=== PATIENT | male | born 1975 | race Caucasian/White ===

== ENCOUNTER 2020-04-02 21:47 | Emergency (ER) | payer SELFPAY ==
[2020-04-02 21:56] VITALS: BP 151/73; PULSE 73; RESP 20; TEMP 36.9; O2SAT 100
[2020-04-02 22:43] LABS: Basophils Absolute Auto 0.1 K/mm3 (0.0-0.1); Basophils Percent Auto 0.6 % (0.2-1.2); Eosinophils Absolute Auto 0.1 K/mm3 (0-0.3); Eosinophils Percent Auto 0.7 % (0-4.4); Hematocrit 41.2 % (42.0-52.0); Hemoglobin 14.7 g/dL (14.0-18.0); Immature Granulocyte Absolute 0.05 K/mm3 (0.00-0.031); Immature Granulocyte Percent A 0.4 % (0-0.5); Lymphocytes Absolute Auto 0.74 K/mm3 (0.9-3.2); Lymphocytes Percent Auto 5.4 % (18.3-44.2); Mean Corpuscular HGB Conc 35.7 g/dl (32-36); Mean Corpuscular Hemoglobin 32.4 pg (26-34); Mean Corpuscular Volume 90.7 fl (80-100); Mean Platelet Volume 8.4 fl (7.4-10.4); Monocytes Absolute Auto 0.6 K/mm3 (0.1-0.6); Monocytes Percent Auto 4.3 % (2.6-8.5); Neutrophils Absolute Auto 12.2 K/mm3 (1.3-6.7); Neutrophils Percent Auto 88.6 % (45.5-73.1); Platelet Count Result 297 k/mm3 (150-375); Red Blood Count 4.54 M/mm3 (4.6-6.20); Red Cell Distribution Width 11.7 % (11.5-14.5); White Blood Count 13.8 K/mm3 (4.5-10.0)
[2020-04-02 22:51] LABS: Alanine Aminotransferase 14 U/L (4-50); Albumin Level 4.7 g/dL (3.5-5.1); Alkaline Phosphatase 75 U/L (38-126); Anion Gap 9 mmol/L (8-16); Aspartate Amino Transferase 21 U/L (17-59); Bilirubin,Total 0.6 mg/dL (0.2-1.3); Blood Urea Nitrogen 10 mg/dL (9-20); Calcium 9.8 mg/dL (8.4-10.2); Carbon Dioxide 29 mmol/L (22-30); Chloride 100 mmol/L (98-107); Estimated Glomerular Filt Rate > 60; Glucose 130 mg/dL (75-110); Lipase 128 U/L (23-300); Potassium 3.3 mmol/L (3.4-5.0); Sodium 138 mmol/L (137-145)
[2020-04-02 22:54] LABS: Add Urine Microscopic? YES; Amorphous Sediment Urine Few; Appearance Urine Cloudy (Clear); Bacteria Urine Trace /hpf; Bilirubin Urine Negative (Negative); Blood Urine Negative (Negative); Color Urine Yellow (Yellow); Glucose Urine UA Negative (Negative); Ketones Urine Negative (Negative); Leukocyte Esterase Ur Negative LEU/UL (Negative); Mucus Urine Rare /lpf; Nitrate Urine Negative (Negative); Protein Urine Negative (Negative); Specific Grav Ur 1.014 (1.001-1.035); Urobilinogen Urine Negative mg/dL (<2.0); WBC Urine 0-3 /hpf
--- NOTE | 2020-04-02 23:35 | ED.ABDPAIN ---
HPI - Abdominal Pain General Chief Complaint: Abdominal Pain Stated Complaint: abdominal pain Time Seen by Provider: 04/02/20 23:32 Source: RN notes reviewed History of Present Illness HPI narrative: Patient presents emergency department from home for abdominal pain. Patient states the pain began tonight shortly after eating dinner. The pain is located in the epigastric region and is described as burning in nature. The patient states that since that time the pain is greatly improved and is only down to a 1 out of 10 at this time. He denies any fevers or chills, chest pain shortness of breath nausea vomiting diarrhea or any other symptoms. States he does have history of GERD but he states [id number] medicine does not seem to work for him he is not currently on any medication Related Data Allergies Allergy/AdvReac Type Severity Reaction Status Date / Time No Known Allergies Allergy Mild Unverified 09/18/10 12:20 Review of Systems Review of Systems: Narrative: Gen.: Denies fevers or chills ENT: Denies congestion Respiratory: Denies shortness of breath or cough CV: Denies chest pain or palpitations GI: See HPI denies burning, urgency, frequency or hematuria Musculoskeletal: Denies back pain or muscle pain Neuro: Denies numbness, tingling, weakness or focal weakness Skin: Denies rash Except as documented, all other systems reviewed and negative PMF Past Medical History Medical History (Updated 04/03/20 @ 00:26 by Ander Floyd DO) GERD (gastroesophageal reflux disease) Social History Social History (Updated 04/02/20 @ 23:36 by Ander Floyd DO) Smoking status: Never smoker Gender identity (if verbalized by the patient): Male Exam Narrative: Exam Narrative: APPEARANCE: No acute distress, nontoxic, resting in bed EYES: EOMI HEENT: Normocephalic, atraumatic, OMM RESPIRATORY: No respiratory distress Clear to auscultation bilaterally with no rhonchi wheezing or rales. CARDIOVASCULAR: Regular rate and rhythm without murmurs rubs or gallops. ABDOMINAL: Soft, nontender, nondistended, no rebound or guarding MUSCULOSKELETAl: Moves all extremities. No clubbing, cyanosis or edema. NEURO: Awake and alert. Following commands, speech normal, no focal deficits SKIN:: Warm, dry. No rashes lesions or abrasions PSYCHIATRIC: Normal affect/mood, Course Course Emergency Course: Patient states pain is completely resolved following GI cocktail Patient states that they are feeling much better at this time. States abdominal pain has resolved. Repeat abdominal exam shows the patient's abdomen to be soft and nontender. Discussed with patient results of workup and diagnosis. Discussed need for follow-up with primary care physician, reasons to return to the emergency department in proper use of medication. Patient understands and agrees to current treatment plan Vital Signs Vital signs: Vital Signs Temperature 98.5 F 04/02/20 21:56 Pulse Rate 73 04/02/20 21:56 Respiratory Rate 20 04/02/20 21:56 Blood Pressure 151/73 H 04/02/20 21:56 Pulse Oximetry 100 04/02/20 21:56 Temperature 98.5 F 04/02/20 21:56 Pulse Rate 98 04/02/20 23:47 Respiratory Rate 15 04/02/20 23:47 Blood Pressure 150/88 H 04/02/20 23:47 Pulse Oximetry 99 04/02/20 23:47 MDM - Abdominal Pain MDM Narrative Medical decision making narrative: Patient's abdomen is soft without significant pain or signs of surgical abdomen on serial exams. Lab and x-ray evaluations are reviewed and patient is felt to be a reasonable candidate for outpatient management. Patient was instructed as to limitations of x-ray and laboratory evaluation and encouraged to return to ED or primary physician for repeat exam in 12 hours if continued or worsening pain. At this time patient does have a mildly elevated white blood cell count his abdomen exam on initial presentation was completely benign and nontender to palpation his pain was only 1 out of 10 at
[2020-04-02 23:47] VITALS: BP 150/88; PULSE 98; RESP 15; O2SAT 99
[2020-04-03 00:30] VITALS: BP 148/74; PULSE 76; RESP 14; O2SAT 100
== END 2020-04-03 00:30 | disposition home or self-care (01) ==
PROVIDERS: Emergency Provider Emergency Medicine; Referring Provider Emergency Medicine
DX: R10.13 Epigastric pain (principal); K21.9 Gastro-esophageal reflux disease without esophagitis
CPT/HCPCS: 36415; 80053; 81001; 83690; 85025; 99283; A9270

== ENCOUNTER 2021-11-28 13:15 | Emergency (ER) | payer OTHER, SELFPAY ==
--- NOTE | ~2021-11-28 | XR_ITS ---
EXAMINATION: XR chest 2V DATE: 11/28/2021 13:56 INDICATION: Cough and shortness of breath TECHNIQUE: PA and lateral views of the chest are obtained. COMPARISON: None available FINDINGS: The lungs are free of acute opacities. Calcified pulmonary nodules are consistent with old granulomatous disease. No pleural effusion or pneumothorax. The cardiomediastinal silhouette is osman l. The visualized bones and soft tissues are unremarkable. IMPRESSION: 1. No acute cardiopulmonary abnormality. Reviewed, dictated and finalized at location B.
[2021-11-28 13:28] VITALS: BP 161/79; PULSE 114; RESP 18; TEMP 36.9; O2SAT 100
--- NOTE | 2021-11-28 13:54 | ED.URI ---
HPI - URI/Sore Throat General Chief Complaint: Upper Respiratory Infection Stated Complaint: uri Time Seen by Provider: 11/28/21 13:56 History of Present Illness HPI Narrative: Zachary Hill is a 46 yo male with no PMH who had COVID 2 weeks ago and while he recovered from that now feels very weak and shaky, seems somewhat short of breath although his O2 sats are 100%, he is tachycardic Related Data Home Medications Medication Instructions Recorded Confirmed No Home Medications 11/28/21 11/28/21 Allergies Allergy/AdvReac Type Severity Reaction Status Date / Time No Known Allergies Allergy Mild Unverified 09/18/10 12:20 Review of Systems Review of Systems: CONSTITUTIONAL: Denies fever, chills, sweats. Shaky, pale EYES: Denies visual changes, redness, discharge. ENT: Denies rhinorrhea, congestion, sore throat, otalgia. CARDIOVASCULAR: Denies chest pain, palpitations, edema. RESPIRATORY: Denies dyspnea, wheezing, has cough, short of breath GASTROINTESTINAL: Denies abdominal pain, nausea, vomiting, diarrhea. GENITOURINARY: Denies dysuria, hematuria, abnormal discharge SKIN: Denies rash or itching. NEUROLOGIC: Denies numbness, or focal weakness. PSYCHIATRIC: Denies anxiety or depression. [facility] Past Medical History Medical History Anxiety GERD (gastroesophageal reflux disease) Social History Social History Smoking status: Never smoker Occupation/Education: occupation Additional occupation/education comments: He is a cook at [employer] Gender identity (if verbalized by the patient): Male Exam Narrative: GENERAL: This is a well-nourished, well-developed patient, in mild distress. Pale and diaphoretic HEAD: normocephalic, atraumatic. EYES: Sclera clear/white. Vision is grossly intact. EARS: External ears normal,. Hearing grossly intact. NOSE: External nose normal without nasal discharge, nares without redness, no rhinorrhea. THROAT: Mucous membranes moist, NECK: Neck supple, Heart: tachycardic rate and rhythm without murmurs, gallops, or rubs. RESPIRATORY: Clear to auscultation. Breath sounds equal bilaterally. No wheezes, rales, or rhonchi. O2 sats are 100%,c/o shortness of breath GASTROINTESTINAL: Abdomen soft, non-tender, SKIN: warm, intact with no suspicious lesions or rash, moist, good texture and turgor. NEURO: awake, alert, and oriented to person, place and time. There were no obvious focal neurologic abnormalities. Steady gait EXTREMITIES: Normal range of motion. BACK: Nontender without deformity Course Course Emergency Course: Patient had COVID 2 weeks ago and feels he recovered from that and the last day or 2 has gotten really weak mouth is dry states he is urinating a lot, feels short of breath - his C.C. for coming Chest x-ray done-chest x-ray was negative for cardiopulmonary disease Blood glucose is 128 EKG shows irregular rate lead 1,2,rate 85 -patient is diaphoretic enough that nurses had difficulty keeping adhesive tabs for the leads on skin Rational transfer to the ER is the patient had COVID 2 weeks ago and has had increasing shortness of breath and was sent home from a sedentary job today for fatigue and inability to push through her job. He is complaining of shortness of breath at rest. Patient referred to ER because of suspect EKG and needs further blood work to rule out PE Level of Care: Express Care Visit Vital Signs Vital signs: Vital Signs Temperature 98.4 F 11/28/21 13:28 Pulse Rate 114 H 11/28/21 13:28 Respiratory Rate 18 11/28/21 13:28 Blood Pressure 161/79 H 11/28/21 13:28 Pulse Oximetry 100 11/28/21 13:28 Oxygen Delivery Room Air 11/28/21 13:28 Temperature 98.4 F 11/28/21 13:28 Pulse Rate 114 H 11/28/21 13:28 Respiratory Rate 18 11/28/21 13:28 Blood Pressure 161/79 H 11/28/21 13:28 Pulse Oximetry 100 11/28/21
[2021-11-28 13:59] LABS: Glucose Point of Care 128 mg/dl (65-105)
--- NOTE | 2021-11-28 14:09 | ECG_ITS ---
Measurements Intervals [place] Rate: 85 P: CA: 0 QRS: 66 QRSD: 83 T: 61 QT: 351 QTc: 419 Interpretive Statements SINUS RHYTHM ATRIAL PREMATURE COMPLEXES BORDERLINE R WAVE PROGRESSION, ANTERIOR LEADS BASELINE ARTIFACT- II, III, AVF, V3 BORDERLINE ECG Electronically Signed On 11-28-2021 15:38:16 CDT by Jaswant Dunlap D.O.
--- NOTE | 2021-11-28 14:24 | PC.NURSE ---
1423- handoff report received from RN.
== END 2021-11-28 14:56 | disposition short-term general hospital (02) ==
PROVIDERS: Emergency Provider Nurse Practitioner; PCP Family Medicine
DX: R06.00 Dyspnea, unspecified (principal); K21.9 Gastro-esophageal reflux disease without esophagitis; Z86.16 Personal history of COVID-19
CPT/HCPCS: 71046; 82948; 93005; 99213; G0463

== ENCOUNTER 2021-11-28 15:13 | Emergency (ER) | payer OTHER, SELFPAY ==
--- NOTE | ~2021-11-28 | XR_ITS ---
EXAMINATION: XR chest 1V portable INDICATION: Shortness of breath, recent COVID 19 TECHNIQUE: Portable AP chest at 1553 hours COMPARISON: 1350 hours FINDINGS: The lungs are free of acute opacities. No pleural effusion or pneumothorax. Calcified pulmo nary nodules are consistent with old granulomatous disease. The cardiomediastinal silhouette is osman l. The visualized osseous structures are unremarkable. IMPRESSION: 1. No acute cardiopulmonary abnormality. Reviewed, dictated and finalized at location B.
[2021-11-28 15:16] VITALS: BP 158/81; PULSE 99; RESP 18; TEMP 37.2; O2SAT 100
--- NOTE | 2021-11-28 15:24 | PC.NURSE ---
pt report today he had dyspnea and weakness.
--- NOTE | 2021-11-28 15:31 | ED.GENADULT ---
HPI - General Adult General Chief complaint: Weakness Stated complaint: sob Time Seen by Provider: 11/28/21 15:22 History of Present Illness HPI narrative: 45-year-old male presents emergency room after initially went to the urgent care. Patient was COVID-positive and he went back to work after only being off for 4 days. He is a cook at [employer]. He was at work today and was feeling so weak that he basically left and went to the urgent care. Patient does have underlying history of anxiety. When he is at the urgent care they were concerned that he was having worsening COVID symptoms and they also did an EKG and they states he may have atrial fibrillation. However the EKG that they obtained shows clear normal sinus rhythm with some PACs. Patient has no chest pain or shortness of breath this time Related Data Home Medications Medication Instructions Recorded Confirmed No Home Medications 11/28/21 11/28/21 Allergies Allergy/AdvReac Type Severity Reaction Status Date / Time No Known Allergies Allergy Mild Unverified 09/18/10 12:20 Review of Systems Review of Systems: CONSTITUTIONAL: Denies fever, chills, or sweats. EYES: Denies visual changes, redness, or discharge. ENT: Denies rhinorrhea, congestion, sore throat, or otalgia. CARDIOVASCULAR: Denies chest pain, palpitations, or edema. RESPIRATORY: Denies cough or dyspnea. GASTROINTESTINAL: Denies abdominal pain, nausea, vomiting, or diarrhea. GENITOURINARY: Denies dysuria or hematuria. SKIN: Denies rash or itching. MUSCULOSKELETAL: Denies back pain, joint pain, or myalgia. NEUROLOGIC: Denies headache, numbness, or weakness. PSYCHIATRIC: Anxiety. 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 Head normocephalic and atraumatic. EYES: PERRLA/EOMI, conjunctivae very clear. NOSE: Normal with no drainage EARS:TMS clear Daryl George, with good light reflex. THROAT: Pharynx clear, no exudate. NECK: Supple. No adenopathy, no masses. RESPIRATORY: Airway patent, respirations nonlabored. Clear to auscultation bilaterally, no rales, rhonchi, wheezing. CARDIOVASCULAR: Regular rate and rhythm without murmurs, rubs, or gallops. Slightly tachycardic at about 100 -105 ABDOMINAL: Soft, nontender, nondistended, no hepatosplenomegaly Musculoskeletal: Moves all extremities. Strength/ROM intact, No edema, No calf tenderness. NEURO: Alert. Cranial nerves II through XII intact. Normal gait. Good coordination. Nonfocal examination. SKIN:: Warm, dry. Normal Color PSYCHIATRIC: Normal affect/mood, normal interaction Course Vital Signs Vital signs: Vital Signs Temperature 99.0 F 11/28/21 15:16 Pulse Rate 99 11/28/21 15:16 Respiratory Rate 18 11/28/21 15:16 Blood Pressure 158/81 H 11/28/21 15:16 Pulse Oximetry 100 11/28/21 15:16 Oxygen Delivery Room Air 11/28/21 15:16 Temperature 99.0 F 11/28/21 15:16 Pulse Rate 99 11/28/21 15:16 Respiratory Rate 18 11/28/21 15:16 Blood Pressure 158/81 H 11/28/21 15:16 Pulse Oximetry 100 11/28/21 15:16 Oxygen Delivery Room Air 11/28/21 15:16 Medical Decision Making MDM Narrative Medical decision making narrative: Chest x-ray is unremarkable. D-dimer is not elevated. Patient was given Ativan 1 mg p.o. to help with his anxiety. Went back and reevaluated the patient much calmer at this time went over all results with him. I told him he still got COVID he just got a give his body time to rest. He needs to increase fluids and rest. Given work excuse
[2021-11-28] MEDS: LORazepam (*CRX) 1 MG TABLET PO (15:39)
[2021-11-28 16:19] LABS: D Dimer 0.35 ug/mL (<0.48)
[2021-11-28 16:45] VITALS: BP 132/88; PULSE 88; RESP 19; O2SAT 99
== END 2021-11-28 16:45 | disposition home or self-care (01) ==
PROVIDERS: Emergency Provider Emergency Medicine; PCP Family Medicine
DX: U07.1 COVID-19 (principal); F41.9 Anxiety disorder, unspecified; R53.83 Other fatigue; K21.9 Gastro-esophageal reflux disease without esophagitis
CPT/HCPCS: 36415; 71045; 85380; 99283; A9270

== ENCOUNTER 2022-04-04 10:32 | Emergency (ER) | payer OTHER, SELFPAY ==
[2022-04-04 10:34] VITALS: BP 150/90; PULSE 85; RESP 14; TEMP 36.3; O2SAT 100
--- NOTE | 2022-04-04 11:51 | ED.UPPEXIN ---
HPI - Extremity Injury (Upper) General Chief Complaint: Extremity Injury, Upper Stated Complaint: cut finger at work Time Seen by Provider: 04/04/22 10:56 History of Present Illness HPI narrative: 46-year-old male presents emergency room for evaluation of a superficial laceration to the fingertip of his right middle finger. Tetanus is not up-to-date. Patient states bleeding was controlled prior to arrival. Related Data Home Medications Medication Instructions Recorded Confirmed No Home Medications 11/28/21 11/28/21 Allergies Allergy/AdvReac Type Severity Reaction Status Date / Time No Known Allergies Allergy Mild Unverified 09/18/10 12:20 Review of Systems Review of Systems: CONSTITUTIONAL: Denies fever, chills, or sweats. EYES: Denies visual changes, redness, or discharge. ENT: Denies rhinorrhea, congestion, sore throat, or otalgia. CARDIOVASCULAR: Denies chest pain, palpitations, or edema. RESPIRATORY: Denies cough or dyspnea. GASTROINTESTINAL: Denies abdominal pain, nausea, vomiting, or diarrhea. GENITOURINARY: Denies dysuria or hematuria. SKIN: Denies rash or itching. MUSCULOSKELETAL: Denies back pain, joint pain, or myalgia. NEUROLOGIC: Denies headache, numbness, dizziness, or weakness. PSYCHIATRIC: Denies anxiety or depression. 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 HEAD: Normocephalic, atraumatic. EYES: Conjunctivae normal, PERRLA and EOMI. CHEST: Clear to auscultation. No respiratory distress. No wheezes rales or rhonchi. HEART: Regular rate and rhythm. No murmur heard. Normal peripheral pulses. EXTREMITIES: Rt. hand: U-shaped superficial laceration to the fingertip of the right middle finger SKIN: Warm, dry, no rash. No noted wounds NEURO: No focal deficits. Alert and oriented x3. MAEW. CN's II-XI intact bilaterally, normal gait PSYCH: Cooperative. Normal mood and affect. Course Vital Signs Vital signs: Vital Signs Temperature 36.3 C L 04/04/22 10:34 Pulse Rate 85 04/04/22 10:34 Respiratory Rate 14 04/04/22 10:34 Blood Pressure 150/90 H 04/04/22 10:34 Pulse Oximetry 100 04/04/22 10:34 Temperature 36.3 C L 04/04/22 10:34 Pulse Rate 85 04/04/22 10:34 Respiratory Rate 14 04/04/22 10:34 Blood Pressure 150/90 H 04/04/22 10:34 Pulse Oximetry 100 04/04/22 10:34 Procedures Other Procedure Procedure 1: Other Procedure: dermabond applied to right middle finger. hemostasis achieved prior to application. Patient tolerated procedure well. Discharge Plan Discharge Clinical Impression: Finger laceration Patient Disposition: Home, Self-Care Condition: Stable Instructions: Antibiotic Form, Laceration (ED) Additional Instructions: Keep wound clean, dry and covered. Skin glue will fall off in 3 to 4 days. Prescriptions: No Action No Home Medications Follow-up/Referrals: Faisal,Tanesha Turner MD [Primary Care Provider] - Time of Disposition: 12:38
[2022-04-04] MEDS: TETANUS,DIPHTHERIA,AC PERTUSSIS ADULT (0.5 ML) BOOSTRIX IM (13:11)
[2022-04-04 14:11] LABS: Amphetamine Screen Urine Negative (Negative); Barbiturate Screen Urine Negative (Negative); Benzodiazepines Screen Urine Negative (Negative); Cannabinoid Screen Urine Negative (Negative); Cocaine Screen Urine Negative (Negative); Methadone Screen Urine Negative (Negative); Opiate Screen Urine Negative (Negative); Phencyclidine Screen Urine Negative (Negative)
== END 2022-04-04 13:18 | disposition home or self-care (01) ==
PROVIDERS: Emergency Provider Nurse Practitioner Family; PCP Family Medicine
DX: S61.212A Laceration without foreign body of right middle finger without damage to nail, initial encounter (principal); Z23 Encounter for immunization; W45.8XXA Other foreign body or object entering through skin, initial encounter; Y99.0 Civilian activity done for income or pay
CPT/HCPCS: 12001; 80307; 90471; 90715; 99283

== ENCOUNTER 2022-04-22 15:49 | Emergency (ER) | payer OTHER, SELFPAY ==
[2022-04-22 15:58] VITALS: BP 141/89; PULSE 106; RESP 20; TEMP 36.9; O2SAT 100
--- NOTE | 2022-04-22 17:45 | ED.BACK ---
HPI - Back Pain/Injury General Chief Complaint: Back Pain/Injury Stated Complaint: lower back pain Time Seen by Provider: 04/22/22 17:45 Source: patient, RN notes reviewed and old records reviewed Mode of arrival: ambulatory Limitations: no limitations History of Present Illness HPI Narrative: 46 year old male who presents to [facility] care with complaints of pain to his lower back radiating down his left leg when he felt a pull in his back when he bent over yesterday to put a sock on. Patient reports that he has been trying to walk around but pain continues. He did call his doctor's office and he has an appointment on 04/27/2022. Ptient denies any diffiuculty passing his urine or any bowel problems denies any saddle paraesthesia. Patient has been taking Tylenol for his pain and using icy hot to his back MD elicited complaint: back pain Onset (ago): day(s) (since yesterday) Pain scale (0-10): 3 Quality: spasming and other (shooting) Exacerbating factors: movement Treatments prior to arrival: acetaminophen and other (icy hot rub to back) Related Data Allergies Allergy/AdvReac Type Severity Reaction Status Date / Time No Known Allergies Allergy Verified 04/22/22 17:35 Review of Systems Review of Systems: CONSTITUTIONAL: Denies fever, chills, or sweats. EYES: Denies visual changes, redness, or discharge. ENT: Denies rhinorrhea, congestion, sore throat, or otalgia. CARDIOVASCULAR: Denies chest pain, palpitations, or edema. RESPIRATORY: Denies cough or dyspnea. GASTROINTESTINAL: Denies abdominal pain, nausea, vomiting, or diarrhea. GENITOURINARY: Denies dysuria or hematuria. SKIN: Denies rash or itching. MUSCULOSKELETAL: Reports lower back pain radiating down left leg at times with spasms, no joint pain, or myalgia. NEUROLOGIC: Denies headache, numbness, or weakness. PSYCHIATRIC: Denies anxiety or depression. All systems reviewed & are unremarkable except as noted in HPI and below PMFSH Social History Social History (Updated 04/26/22 @ 21:03 by Arline Shepherd NP) Smoking status: Never smoker Gender identity (if verbalized by the patient): Male Comments At time of signature, agree with nursing past medical, surgical, social and family history. There is no relevant family history pertinent to the presenting complaint Exam Narrative: GENERAL: Well-appearing, well-nourished, and in no acute distress. HEAD: Normocephalic, atraumatic. EYES: PERRLA and EOMI. ENT: Nares clear, no rhinorrhea or epistaxis. Mucous membranes moist. NECK: Supple. no lymphadenopathy CHEST: Clear to auscultation. No respiratory distress.SAO2 100% on room air HEART: Regular rate and rhythm. No murmur heard. Normal peripheral pulses. ABDOMEN: Soft, nontender, nondistended, normal active bowel sounds. EXTREMITIES: Normal range of motion. No edema.Pin to lower back with some radiation down left leg ,pain aggravated with movement with some spasming noted, denies any bowel or bladder dysfunction SKIN: Warm, dry, no rash. NEURO: No focal deficits. Alert and oriented x3. Course Course Emergency Course: Patient is aware of diagnosis, understands and agrees to treatment plan.? Anticipatory guidance given.? Patient agrees to follow-up as directed and is aware of reasons to seek care at the emergency department. Portions of this record may have been created with voice recognition software Level of Care: Express Care Visit Vital Signs Vital signs: Vital Signs Temperature 36.9 C 04/22/22 15:58 Pulse Rate 106 H 04/22/22 15:58 Respiratory Rate 20 04/22/22 15:58 Blood Pressure 141/89 H 04/22/22 15:58 Pulse Oximetry 100 04/22/22 15:58 Oxygen Delivery Room Air 04/22/22 15:58 Temperature 36.9 C 04/22/22 15:58 Pulse Rate 106 H 04/22/22 15:58 Respiratory Rate 20 04/22/22 15:58 Blood Pressure 141/89 H 04/22/22 15:58 Pulse Oximetry 100 04/22/22 15:58 Oxygen Delivery Room Air 04/22/22 15:58 Reviewed MDM - Back Pain/Injury D
== END 2022-04-22 18:05 | disposition home or self-care (01) ==
PROVIDERS: Emergency Provider Registered Nurse; PCP Family Medicine
DX: S39.012A Strain of muscle, fascia and tendon of lower back, initial encounter (principal); X50.0XXA Overexertion from strenuous movement or load, initial encounter
CPT/HCPCS: 99213; G0463

== ENCOUNTER → 2022-08-28 08:19 | Outpatient (CLI) | payer OTHER, SELFPAY ==
--- NOTE | ~2022-08-28 | CT_ITS ---
EXAMINATION: CT abdomen pelvis w con DATE: 08/28/2022 08:49 INDICATION: Unspecified abdominal pain. TECHNIQUE: Computed tomography (CT) of the abdomen and pelvis was performed with 100 mL Omnipaque 350 intravenous contrast. Automated exposure control and iterative reconstruction technique were employe d. The dose-length product was 341.64 mGy-cm. COMPARISON: CT abdomen and pelvis 09/12/2017 FINDINGS: The visualized portions of the lung bases demonstrate a calcified left lung nodule, consist ent with old granulomatous disease. No pleural effusion. The heart size is normal. No pericardial eff usion. There are cysts in the liver measuring up to 8 mm. There is a 12 mm hyperdense mass in right h epatic lobe without change, likely a hemangioma or focal nodular hyperplasia. There are gallstones in the gallbladder, which is normal in size. The spleen, pancreas, adrenal glands, and kidneys are norm al. The prostate is mildly enlarged. There are no dilated loops of bowel. The appendix is normal. The re are no pathologically enlarged lymph nodes. There is no free intraperitoneal fluid. There are bruno gn bone islands in left femoral head. There is mild lumbar spondylosis. IMPRESSION: 1. Cholelithiasis. No evidence of acute cholecystitis. Reviewed, dictated and finalized at location A.
== END ==
PROVIDERS: PCP Family Medicine; Visit Provider Family Medicine
DX: R10.9 Unspecified abdominal pain (principal); K80.20 Calculus of gallbladder without cholecystitis without obstruction
CPT/HCPCS: 74177; Q9967

== ENCOUNTER 2023-01-29 20:15 | Emergency (ER) | payer OTHER, SELFPAY ==
--- NOTE | ~2023-01-29 | XR_ITS ---
EXAMINATION: XR foot LT min 3V DATE: 01/29/2023 22:35 INDICATION: Left great toe injury TECHNIQUE: Dorsoplantar, oblique and lateral views of the left foot were obtained. COMPARISON: None. FINDINGS: Alignment is normal. No fracture. Joint spaces are normal. Soft tissues are unremarkable. No ankle jose martin int effusion. IMPRESSION: 1. Negative left foot radiographs. Reviewed, dictated and finalized at location A.
[2023-01-29 20:47] VITALS: BP 155/83; PULSE 96; RESP 18; TEMP 36.6; O2SAT 100
--- NOTE | 2023-01-29 23:37 | ED.GENADULT ---
HPI - General Adult General Chief complaint: Extremity Injury, Lower Stated complaint: L big toe injury Time Seen by Provider: 01/29/23 22:22 History of Present Illness HPI narrative: This is a 47-year-old male presenting with a left toenail injury. The patient kicked a wall and had part of his big toenail,. No other injuries. Related Data Allergies Allergy/AdvReac Type Severity Reaction Status Date / Time No Known Allergies Allergy Verified 01/29/23 22:26 [facility] Past Medical History Medical History Anxiety GERD (gastroesophageal reflux disease) Social History Social History Smoking status: Never smoker Occupation/Education: occupation Additional occupation/education comments: He is a cook at [employer] Gender identity (if verbalized by the patient): Male Exam Narrative: APPEARANCE: No apparent distress. Head: atraumatic. EYES: EOMI, NOSE: Atraumatic NECK: Trachea midline RESPIRATORY: No increased rate of breathing CARDIOVASCULAR: RRR, ABDOMINAL: Non-distended MUSCULOSKELETAl: focal exam of the left foot revealed no soft tissue injuries. The great toes toenail has been lifted off but is still attached at the base. NEURO: Alert. Moving 4/4 extremities SKIN:: Warm, dry. Normal color PSYCHIATRIC: Normal affect Course Vital Signs Vital signs: Vital Signs Temperature 97.8 F 01/29/23 20:47 Pulse Rate 96 01/29/23 20:47 Respiratory Rate 18 01/29/23 20:47 Blood Pressure 155/83 H 01/29/23 20:47 Pulse Oximetry 100 01/29/23 20:47 Oxygen Delivery Room Air 01/29/23 20:47 Temperature 97.8 F 01/29/23 20:47 Pulse Rate 96 01/29/23 20:47 Respiratory Rate 18 01/29/23 20:47 Blood Pressure 155/83 H 01/29/23 20:47 Pulse Oximetry 100 01/29/23 20:47 Oxygen Delivery Room Air 01/29/23 20:47 Medical Decision Making MDM Narrative Medical decision making narrative: -Course: 47-year-old male presenting with a toenail injury. His big toenail is still attached at the base. It will be secured to preserve the nail bed. Patient be discharged with primary care follow-up. -DDX includes but is not limited to: soft tissue injury, nail bed injury, acute osseous injury -Co-morbidities complicating care: anxiety -Social determinants of health: works as a cook and lives with his mom -Independent interpretation of studies: x-rays negative for fracture -Shared decision making / Disposition:discharged -RX Keflex 500 mg b.i.d. x7 Vital Signs Vital Signs: Vital Signs Temperature 97.8 F 01/29/23 20:47 Pulse Rate 96 01/29/23 20:47 Respiratory Rate 18 01/29/23 20:47 Blood Pressure 155/83 H 01/29/23 20:47 Pulse Oximetry 100 01/29/23 20:47 Oxygen Delivery Room Air 01/29/23 20:47 Temperature 97.8 F 01/29/23 20:47 Pulse Rate 96 01/29/23 20:47 Respiratory Rate 18 01/29/23 20:47 Blood Pressure 155/83 H 01/29/23 20:47 Pulse Oximetry 100 01/29/23 20:47 Oxygen Delivery Room Air 01/29/23 20:47 Discharge Plan Discharge Clinical Impression: Injury of toe Patient Disposition: Home, Self-Care Condition: Stable Instructions: Antibiotic Form, Nail Removal (ED) Additional Instructions: please complete a course of antibiotics. Please return if your toe becomes red painful or starts having purulent discharge. Your nail will fall off on its own over the next several weeks. Prescriptions: New cephalexin 500 mg capsule 500 mg PO Q12H Qty: 14 0RF No Action prednisone 20 mg tablet 20 mg PO BID Qty: 10 0RF cyclobenzaprine 10 mg tablet 10 mg PO TID PRN (Reason: muscle spasm) Qty: 14 0RF Rx Instructions: DO NOT DRIVE OR OPERATE MACHINERY WHILE TAKING Follow-up/Referrals: Faisal,Tanesha Turner MD [Primary Care Provider] -
[2023-01-29 23:53] VITALS: BP 150/82; PULSE 76; RESP 16; O2SAT 100
== END 2023-01-29 23:40 | disposition home or self-care (01) ==
PROVIDERS: Emergency Provider Emergency Medicine; PCP Family Medicine
DX: S99.922A Unspecified injury of left foot, initial encounter (principal); W22.09XA Striking against other stationary object, initial encounter
CPT/HCPCS: 73630; 99283